=== PATIENT | male | born 1965 | race Caucasian/White ===

== ENCOUNTER 2017-01-30 20:37 | Emergency (ER) | payer MEDICAID ==
[2017-01-30 20:38] VITALS: BMI 27.4
[2017-01-30 20:51] VITALS: BP 144/80; PULSE 95; RESP 18; TEMP 98.2; O2SAT 100
--- NOTE | 2017-01-30 21:20 | C.PDOC ---
History Of Present Illness 51 y/o male c/o pain and swelling to nose for 2 days. Patient notes cutting his nasal hair with old scissors and is unsure if that caused the problem. Denies fever, chills, bleeding, rash, or any other complaints. Time Seen by Provider: 01/30/17 21:08 Chief Complaint (Nursing): ENT Problem History Per: Patient History/Exam Limitations: None Onset/Duration Of Symptoms: Days (2) Current Symptoms Are (Timing): Still Present Severity: Mild Past Medical History Reviewed: Historical Data, Nursing Documentation, Vital Signs Vital Signs: Last Vital Signs Temp 98.2 F 01/30/17 20:48 Pulse 95 H 01/30/17 20:48 Resp 18 01/30/17 20:48 BP 144/80 01/30/17 20:48 Pulse Ox 100 01/30/17 23:26 - Medical History PMH: Back Problems, Depression (takes medicine) - [facility] Procedures OTHER SKIN & SUBQ I D (06/23/14) Family History: States: Unknown Family Hx - Social History Hx Tobacco Use: No Hx Alcohol Use: No Hx Substance Use: No - Immunization History Hx Tetanus Toxoid Vaccination: No Hx Influenza Vaccination: No Hx Pneumococcal Vaccination: No Review Of Systems Constitutional: Negative for: Fever, Chills ENT: Positive for: Nose Pain (And Nose swelling). Negative for: Nose Discharge , Other (Nose bleeding) Skin: Negative for: Rash Physical Exam - Physical Exam Appears: Non-toxic, No Acute Distress Skin: Warm, Dry Head: Atraumatic, Normacephalic Eye(s): bilateral: Normal Inspection Nose: No Discharge, No Epistaxis, Other (Small pea size tender indurated mass to the floor of the right nostril. ) Oral Mucosa: Moist Tongue: Normal Appearing Lips: No Swelling Throat: Normal, No Erythema Neck: Normal, Supple Lymphatic: No Adenopathy Neurological/Psych: Oriented x3, Normal Speech, Normal Cognition, Normal Sensation, Other (No focal deficit) ED Course And Treatment O2 Sat by Pulse Oximetry: 100 (RA) Pulse Ox Interpretation: Normal Progress Note: Impression: 51 y/o male c/o pain and swelling to nose for 2 days. Plans: Motrin, Tetanus, Reassess. patient is in no acute distress at this time. Patient is currently afebrile and is instructed to follow up with PMD for further eval and to return if symtoms worsens. Disposition Counseled Patient/Family Regarding: Diagnosis, Need For Followup, Rx Given - Disposition Referrals: Non [facility] Provider, [Primary Care Provider] - Disposition: HOME/ ROUTINE Disposition Time: 21:17 Condition: STABLE Additional Instructions: follow up with pmd or in clinic Take meds as prescribed return to ER if moderate facial swelling, fever or worse Prescriptions: Cephalexin [cephalexin] 1,000 mg PO BID #28 cap Ibuprofen [Motrin] 600 mg PO Q6H #30 tab Instructions: Abscess (ED) Forms: Wetpaint (Thai) Print Language: KENYAN - Clinical Impression Clinical Impression: Nasal abscess - Scribe Statement The provider has reviewed the documentation as recorded by the Edwinibshayan angela All medical record entries made by the Edwinibshayan were at my direction and personally dictated by me. I have reviewed the chart and agree that the record accurately reflects my personal performance of the history, physical exam, medical decision making, and the department course for this patient. I have also personally directed, reviewed, and agree with the discharge instructions and disposition.
[2017-01-30] MEDS ORDERED: Tetanus/Diphtheria Toxoids 0.5 ml Syringe IM ONE ×2 (21:21→21:24)
== END 2017-01-30 21:31 | disposition home or self-care (01) ==
LOC: SUPCPDRO 20:37 → C.ER 20:37
DX: J34.0 Abscess, furuncle and carbuncle of nose (principal)